=== PATIENT | male | born 1965 | race Caucasian/White ===

== ENCOUNTER 2020-02-03 09:05 | Emergency (ER) | payer OTHER ==
[~2020-02-03] VITALS: Ht 170.2 cm; Wt 97.5 kg
[~2020-02-03 09:05] MED LIST: CLEOCIN HCL300 MG PO; GLU500 PO; LAC PO; LEVAQUIN750 MG PO
[2020-02-03 09:12] VITALS: Ht 170.2 cm; Wt 97.5 kg
[2020-02-03 11:37] VITALS: BP 127/97
== END 2020-02-03 11:37 | disposition home or self-care (01) ==
LOC: ED 09:05
DX: S39.012A Strain of muscle, fascia and tendon of lower back, initial encounter (principal); E11.9 Type 2 diabetes mellitus without complications; X58.XXXA Exposure to other specified factors, initial encounter; Y93.89 Activity, other specified; Y92.89 Other specified places as the place of occurrence of the external cause; Y99.8 Other external cause status
CPT/HCPCS: 82962; J1885